=== PATIENT | male | born 1955 | race Caucasian/White ===

== ENCOUNTER 2017-02-17 05:27 | Day surgery (SDC) | payer BC ==
[2017-02-14 10:52] LABS: HEMATOCRIT 43.8 % (42.0-54.0); HEMOGLOBIN 14.9 g/dL (13.5-17.5); MCV 88.1 fL (80.0-100.0); MEAN PLATELET VOLUME 10.4 fL (7.4-10.4); RBC 4.97 10x6/uL (4.20-6.10); RDW 12.4 % (11.5-14.5); WBC 10.6 10x3/uL (4.8-10.8)
[~2017-02-17] VITALS: Ht 170.2 cm; Wt 86.2 kg
--- NOTE | ~2017-02-17 | OP ---
PATIENT NAME: SERGEI SWANN MEDICAL RECORD: [id number] :55 LOCATION:[facility] ADMISSION DATE: SURGEON: SEREGI GOLDSTEIN DATE OF OPERATION: 02/17/2017 SURGEON: Sergei Goldstein DPM. PREOPERATIVE DIAGNOSIS: Plantar fibroma, left foot. POSTOPERATIVE DIAGNOSIS: Plantar fibroma, left foot. PROCEDURE: Excision of plantar fibroma, left foot. ANESTHESIA: General. HEMOSTASIS: Pneumatic ankle tourniquet inflated to 250 mmHg. ESTIMATED BLOOD LOSS: Minimal. MATERIALS: 3-0 Vicryl, 3-0 nylon. INJECTABLES: A 20 cc 0.5% bupivacaine plain. The patient has a longstanding history of 2 plantar fibromas on the plantar surface of the left foot. They cause pain with ambulation. He has tried conservative treatment including padding and verapamil cream to no avail. He is here today for excision of this masses. We have discussed the risks and benefits of the procedure. Complications were reviewed. His questions were answered. He was appropriately consented for the above procedure. The patient was brought into the operating room and placed on the operating table in a supine position. A timeout was called with Dr. Goldstein, who identified the patient, the surgical site, and the surgery to be performed. Once appropriate anesthesia was obtained, the foot was prepped and draped in the usual aseptic manner. The pneumatic ankle tourniquet was inflated to 250 mmHg on the well-padded left ankle. Attention was directed to the plantar surface of the left foot where 2 discrete masses were identified. A lazy S incision was made directly over this masses. The incision was carried deep through soft tissue with care being taken to retract all vital neurovascular structures. All bleeders were cauterized along the way. The plantar fascia was then identified and 2 masses were noted. Next, utilizing a fresh 15 blade, a wide excision of the medial band of the plantar fascia that incorporated both masses was created. The medial band of the plantar fascia that incorporated the 2 masses was sharply dissected free from the underlying muscle belly and soft tissue and was passed from the field and was sent to pathology. The surgical site was then investigated for any remaining pathological tissue and none was noted. The surgical site was then irrigated with copious amounts of normal sterile saline via bulb syringe. The subQ was then reapproximated and coapted utilizing 3-0 Vicryl. The skin was then reapproximated and coapted utilizing 3-0 nylon. A dressing consisting of Xeroform, 4 x 4's, Kerlix, and Antonio bandage was applied to the left foot. The OPERATIVE REPORT [id number] HUESERGEI CRANE pneumatic ankle tourniquet was deflated and capillary refill time was noted to be instantaneous to the left foot. The patient tolerated the procedure and anesthesia well. He left the operating room with vital signs stable and capillary refill time intact. The patient was discharged home with instructions to ice and elevate the left foot. He is to be completely nonweightbearing. He has both a pair of crutches and a knee scooter to facilitate nonweightbearing. He is to wear the boot at all times for protection of the surgical sites. He was dispensed prescriptions for [place] 7.5, ibuprofen 800 mg and Phenergan 25 mg. There were no complications with this procedure and he will follow up next week. A Paul drain was placed in the surgical site, and the wound was close over the drain and the drain was left percutaneous for removal next week. TRANSINT:[id number] Voice Confirmation ID: [id number] DOCUMENT ID: [id number] SERGEI GOLDSTEIN CC: [id number] DICTATION DATE: 02/17/17 1655 SAFETY OFFICER: 02/17/172212 [facility] 02/17/[address] [id number]
[~2017-02-17 05:27] MED LIST: NORVASC10 MG PO
[2017-02-17 09:08] VITALS: BP 156/91; Ht 170.2 cm; Wt 86.2 kg
--- NOTE | 2017-02-17 14:48 | NUR ---
1420 DISCHARGE INSTRUCTIONS COMPLETE. PRESCRIPTIONS GIVEN PRIOR TO ADMISSION. PATIENT DENIES PAIN AT THIS TIME. BOOT GIVEN. ESCORTED OUT BY VOLUNTEER.
== END 2017-02-17 14:21 | disposition home or self-care (01) ==
LOC: D.OPS 05:27 → D.PAN 11:30 → D.OPS 11:30
PROVIDERS: Anesthesiology
DX: M72.2 Plantar fascial fibromatosis (principal); I10 Essential (primary) hypertension; K21.9 Gastro-esophageal reflux disease without esophagitis; Z01.812 Encounter for preprocedural laboratory examination